=== PATIENT | female | born 1925 | race Caucasian/White ===

== ENCOUNTER 2016-11-11 09:04 | Emergency (ER) | payer MEDICARE, BC ==
[2016-11-11] MEDS: LABETALOL HYDROCHLORIDE 5 MG/ML SOL IV ONE (09:12)
[2016-11-11 09:16] VITALS: RESP 20
[2016-11-11] MEDS ORDERED: LABETALOL HYDROCHLORIDE 5 MG/ML SOL IV ONE (09:19)
[2016-11-11 09:44] LABS: BASOPHILS % (AUTO) 0 % (0-3); EOSINOPHILS % (AUTO) 1 % (0-9); HEMATOCRIT 41 % (35-47); MEAN CORPUSCULAR HGB CONC 34.4 gm/dl (32.0-36.0); MEAN CORPUSCULAR VOLUME 90 fL (81-99); MONOCYTES % (AUTO) 7.6 % (0-12)
[2016-11-11 10:01] LABS: CALCIUM 8.9 mg/dl (8.5-10.1); POTASSIUM 4.5 mMol/L (3.5-5.1)
[2016-11-11 10:27] VITALS: BP 156/86; PULSE 75; TEMP 96.6; O2SAT 95
== END 2016-11-11 11:10 | disposition home or self-care (01) | DRG 605 ==
LOC: ED 09:04
DX: S00.83XA Contusion of other part of head, initial encounter (principal); I16.9 Hypertensive crisis, unspecified; W18.30XA Fall on same level, unspecified, initial encounter
CPT/HCPCS: 36415; 70450; 72125; 80048; 84484; 85025; 93005; 99284

== ENCOUNTER 2016-11-16 23:19 | Observation (INO) | payer MEDICARE, BC ==
[2016-11-16 23:35] LABS: BASOPHILS % (AUTO) 1 % (0-3); EOSINOPHILS % (AUTO) 1 % (0-9); HEMATOCRIT 38 % (35-47); MEAN CORPUSCULAR HGB CONC 34.2 gm/dl (32.0-36.0); MEAN CORPUSCULAR VOLUME 92 fL (81-99); MONOCYTES % (AUTO) 7.2 % (0-12); NEUTROPHILS % (AUTO) 73.3 % (37-80)
[2016-11-16 23:43] LABS: CALCIUM 8.7 mg/dl (8.5-10.1); POTASSIUM 4.5 mMol/L (3.5-5.1)
[2016-11-17] MEDS ORDERED: SCOPOLAMINE 1.5MG PATCH TD SCH (01:30)
[2016-11-17] MEDS ORDERED: SODIUM CHLORIDE 0.9% FLUSH 10 ML SOL IV SCH (02:00)
[2016-11-17] MEDS ORDERED: MORPHINE SULFATE 20 MG/1 ML SOL PO PRN (08:18)
[2016-11-17] MEDS ORDERED: LORAZEPAM 0.5 MG TAB PO PRN (08:20)
[2016-11-17] MEDS: SODIUM CHLORIDE 0.9% FLUSH 10 ML SOL IV SCH ×2 (08:37→19:58)
[2016-11-17] MEDS: MORPHINE SULFATE 10 MG/ML SOL IV PRN ×5 (09:04→22:27)
[2016-11-17] MEDS: SODIUM CHLORIDE 0.9% FLUSH 10 ML SOL IV PRN ×3 (11:41→22:27)
[2016-11-17] MEDS ORDERED: ATROPINE 1% OP PRN (12:00)
[2016-11-17] MEDS ORDERED: SODIUM CHLORIDE 0.9% 1000ML 1,000 ML IV ONE (23:45)
[2016-11-18] MEDS: MORPHINE SULFATE 10 MG/ML SOL IV PRN ×4 (01:19→08:46)
[2016-11-18] MEDS: SODIUM CHLORIDE 0.9% FLUSH 10 ML SOL IV SCH ×3 (01:21→08:46)
[2016-11-18 01:28] VITALS: BP 100/66; PULSE 92; RESP 12; TEMP 97.6; O2SAT 94
[2016-11-18] MEDS: SODIUM CHLORIDE 0.9% FLUSH 10 ML SOL IV PRN (04:16)
== END 2016-11-18 09:10 | disposition hospice, inpatient (51) | DRG 64 ==
LOC: ED 23:19 → ACUTE CARE 11-17 01:08
PROVIDERS: ADMIT Family Medicine; ATTEND Family Medicine
DX: I63.9 Cerebral infarction, unspecified (principal); R40.2312 Coma scale, best motor response, none, at arrival to emergency department; R40.2212 Coma scale, best verbal response, none, at arrival to emergency department; R29.732 NIHSS score 32; R40.2132 Coma scale, eyes open, to sound, at arrival to emergency department
CPT/HCPCS: 36415; 70450; 80048; 85025; 85610; 93005; 99291; J2270; A6232